=== PATIENT | male | born 2000 | race African-American/Black ===

== ENCOUNTER 2022-09-15 23:37 | Emergency (ER) | payer BC, MEDICAID, MEDICARE ==
[~2022-09-15] VITALS: Ht 190.5 cm; Wt 113.0 kg
[~2022-09-15 23:37] MED LIST: ARIP2TAB3 PO; CLON0.1T PO; METH18TA PO
[2022-09-15 23:57] VITALS: BP 96/75
== END 2022-09-16 01:29 | disposition home or self-care (01) ==
LOC: ER 23:37
DX: Z48.00 Encounter for change or removal of nonsurgical wound dressing (principal); L76.22 Postprocedural hemorrhage of skin and subcutaneous tissue following other procedure
CPT/HCPCS: 99281; Z7610